=== PATIENT | male | born 1995 | race Caucasian/White ===

== ENCOUNTER 2018-10-08 17:04 | Emergency (ER) | payer MEDICAID ==
[~2018-10-08] VITALS: Ht 167.6 cm; Wt 90.0 kg
[2018-10-08 17:09] VITALS: BP 135/69
== END 2018-10-08 17:26 | disposition left against medical advice (07) ==
LOC: EMS 17:06
DX: R51 Headache (principal); Z53.21 Procedure and treatment not carried out due to patient leaving prior to being seen by health care provider